=== PATIENT | female | born 1965 | race Caucasian/White ===

== ENCOUNTER 2018-07-24 19:33 | Inpatient (IN) | payer OTHER ==
[~2018-07-24] VITALS: Ht 165.1 cm; Wt 93.4 kg
[2018-07-24] MEDS ORDERED: morphine 4 MG/ML VIAL IV STA (19:36)
[2018-07-24] MEDS ORDERED: NITROGLYCERIN 50 MG/D5W (PMX) 250 ML IV STA (19:36)
[2018-07-24] MEDS ORDERED: ASPIRIN 81 MG TAB PO STA (19:36)
[2018-07-24] MEDS ORDERED: FUROSEMIDE 40 MG INJ IV STA (19:36)
[2018-07-24] MEDS ORDERED: ONDANSETRON 4 MG INJ IV STA (19:36)
--- NOTE | 2018-07-24 19:48 | ERD ---
ER Documentation Chief Complaint Chief Complaint sob HPI 52-year-old female who presents via EMS with respiratory distress. Patient is a dialysis patient getting dialysis on Tuesday and Tuesday. Occasionally supplementing with Tuesday. She did not get dialysis today and last dialysis was Tuesday. Progressive shortness of breath over the last several days. Blood pressure was greater than 200 via EMS. The patient arrives on CPAP. The patient herself describes shortness of breath but no chest pressure. No fevers chills or cough. ROS Limited given critical nature of the patient Allergies Allergies: Coded Allergies: Penicillins (Verified Allergy, Unknown, rash, 07/24/18) cefazolin (Verified Allergy, Unknown, rash, 07/24/18) morphine (Verified Allergy, Unknown, rash, 07/24/18) povidone-iodine (Verified Allergy, Unknown, rash, 07/24/18) soap (Verified Allergy, Unknown, rash, 07/24/18) vancomycin (Verified Allergy, Unknown, rash, 07/24/18) FmHx Family History: No diabetes Physical Exam Vitals Vital Signs Date Temp Pulse Resp B/P (MAP) Pulse Ox O2 O2 Flow FiO2 Time Delivery Rate 07/24/18 100 50 20:47 07/24/18 89 27 213/101 98 19:44 (138) 07/24/18 94 100 100 19:33 Physical Exam General: Obese female in respiratory distress speaking in short sentences Head: Normocephalic, atraumatic. Eyes: Pupils equally reactive, EOM intact ENT: Moist mucous membranes Neck: Supple, no lymphadenopathy Respiratory: Rales at the bases bilaterally, increased work of breathing Cardiovascular: RRR, no murmurs, rubs, or gallops Abdominal: Soft, non-tender, non-distended, no peritoneal signs : Deferred MSK: edema, no unilateral swelling, 5/5 strength, left upper extremity AV fistula with good bruit and thrill Neurologic: Alert and oriented, moving all extremities, normal speech, no focal weakness, no cerebellar signs Skin: No rash Psych: Normal mood Result Diagram: 07/24/18193907/24/181939 Results 24 hrs Laboratory Tests Test 07/24/18 19:40 07/24/18 20:30 White Blood Count 10.1 10^3/ul Red Blood Count 4.08 10^6/ul Hemoglobin 12.2 g/dl Hematocrit 39.1 % Mean Corpuscular Volume 95.8 fl Mean Corpuscular Hemoglobin 29.9 pg Mean Corpuscular Hemoglobin Concent 31.2 g/dl Red Cell Distribution Width 12.7 % Platelet Count 447 10^3/UL Mean Platelet Volume 10.3 fl Immature Granulocytes % 0.400 % Neutrophils % 44.8 % Lymphocytes % 42.3 % Monocytes % 4.3 % Eosinophils % 7.3 % Basophils % 0.9 % Nucleated Red Blood Cells % 0.0 /100WBC Immature Granulocytes # 0.040 10^3/ul Neutrophils # 4.5 10^3/ul Lymphocytes # 4.3 10^3/ul Monocytes # 0.4 10^3/ul Eosinophils # 0.7 10^3/ul Basophils # 0.1 10^3/ul Nucleated Red Blood Cells # 0.0 10^3/ul Prothrombin Time 12.5 Sec Prothrombin Time Ratio 1.0 INR International Normalized Ratio 0.92 Activated Partial Thromboplast Time 32.3 Sec Sodium Level 140 mmol/L Potassium Level 5.3 mmol/L Chloride Level 86 mmol/L Carbon Dioxide Level 26 mmol/L Anion Gap 28 Blood Urea Nitrogen 64 mg/dl Creatinine 9.22 mg/dl Est Glomerular Filtrat Rate mL/min 4 mL/min Glucose Level 407 mg/dl Calcium Level 9.5 mg/dl Total Bilirubin 0.0 mg/dl Direct Bilirubin 0.00 mg/dl Indirect Bilirubin 0.0 mg/dl Aspartate Amino Transf (AST/SGOT) 40 IU/L Alanine Aminotransferase (ALT/SGPT) 10 IU/L Alkaline Phosphatase 164 IU/L Troponin I 0.024 ng/ml B-Type Natriuretic Peptide 53156 PG/ML Total Protein 9.3 g/dl Albumin 4.9 g/dl Globulin 4.40 g/dl Albumin/Globulin Ratio 1.11 Blood Gas Specimen Source Blood arterial Arterial Blood Date Drawn 07/24/2018 8:35:10 PM Arterial Blood pH (Temp corrected) 7.369 Arterial Blood pCO2 (Temp correct) 48.1 mmhg Arterial Blood pO2 (Temp corrected) 214.7 mmHG Arterial Blood HCO3 27.1 mmol/L Arterial Blood Base Excess 1.4 mmol/L Arterial Blood Oxygen Saturation 98.7 mmHG Phan Test ACCEPTAB Arterial Blood Gas Puncture Site Right Radial Arterial Blood Carboxyhemoglobin 0.3 % Arterial Blood Methemoglobin 0.3 % Blood Gas A-a O2 Differential 450.2 mmHg Oxyhemoglobin Percent 98.1 % Blood Gas Temperature 37.0 C Blood Gas Respiration Rate 14.0 Blood Gas Actual Respiration Rate 20 Blood Gas Modality MASK - BIPAP FiO2 100.0 % Blood Gas IPAP/EPAP Ratio 15/5 Blood Gas Notified Whom MM Blood Gas Notified Time 07/24/2018 8:42:42 PM Current Medications Medications Dose Sig/Britni Start Time Status Last (Trade) Ordered Route PRN Stop Time Admin Dose Reason Admin Aspirin 162 mg ONCE STAT 07/24/18 DC 07/24/18 (Aspirin) PO 19:36 19:52 07/24/18 19:38 250 ml @ 6 ONCE STAT 07/24/18 07/24/18 Nitroglycerin mls/hr IV 19:36 19:42 / Dextrose 07/26/18 13:15 Morphine 4 mg ONCE STAT 07/24/18 DC Sulfate IV 19:36 (morphine) 07/24/18 20:04 Ondansetron 4 mg ONCE STAT 07/24/18 DC 07/24/18 HCl (Zofran IV 19:36 19:51 Inj) 07/24/18 20:04 Furosemide 40 mg ONCE STAT 07/24/18 DC (Lasix) IV 19:36 07/24/18 19:38 Insulin 10 unit ONCE ONCE 07/24/18 Human SC 22:00 Lispro 07/24/18 22:01 (Humalog) Procedures/MDM EKG, MONITORS, & DIAGNOSTIC IMAGING: EKG: I reviewed and interpreted a 12-lead EKG. Rhythm: Normal sinus rhythm ST Changes: No contiguous ST segment elevations T waves: No contiguous T wave inversions Impression: [No evidence of acute cardiac ischemia] Chest x-ray: I reviewed and interpreted a 1 view of the chest Mediastinum: No enlargement Cardiac silhouette: cardiomegaly Airspace: Bilateral pulmonary edema Bones: No evidence of fracture LAB INTERPRETATION: I reviewed the laboratory testing and it shows multiple abnormalities including borderline hyperkalemia of 5.3, elevated BUN to creatinine of 64 and 9.22, normal bicarb of 26 but hyperglycemia. This is not consistent with diabetic ketoacidosis. Negative troponin. MEDICAL DECISION MAKING: Clinical exam and presentation are consistent with volume overload and hypertensive emergency. The patient is in acute respiratory failure with increased work of breathing requiring positive pressure ventilation. Patient needs afterload and preload reduction. She still make some urine. I would like to avoid intubation if at all possible and I believe that afterload reduction positive pressure ventilation and blood pressure control be appropriate. ER COURSE: * Patient was immediately placed in the room and started on positive pressure ventilation. Nitroglycerin drip initiated. The patient was given Lasix and m orphine. * The patient has had appropriate decrease in her blood pressure with nitroglycerin drip per the patient is feeling much better on positive pressure ventilation. The patient still requires support but is certainly improving and does not require intubation * Hyperglycemia without evidence of diabetic ketoacidosis. 10 units of subcutaneous Humalog provided. CONSULTATION: [None] DISPOSITION PLAN: Accepting care team and consultations: I discussed the current laboratory data, diagnostic imaging and emergency care provided. Admitting team: Dr. Alston Admitting team indication: Insurance directed Critical Care Note: Total time: 45 minutes Indication/Organ System Threat: acute respiratory failure I spent the above amount of critical care time with the patient, not including billable procedures. This included chart review, consultations, repeat bedside evaluations, and titration of appropriate medications to prevent cardiopulmonary or respiratory collapse. Departure Diagnosis: Primary Impression: Acute respiratory failure Respiratory failure complication: unspecified whether with hypoxia or hy percapnia Qualified Codes: J96.00 - Acute respiratory failure, unspecified whether with hypoxia or hypercapnia Additional Impressions: Hypertensive emergency End stage renal disease on dialysis Hyperglycemia Condition: Critical MICHAEL MENDOZA MD Jul 24, 2018 19:48
[2018-07-24] MEDS ORDERED: CALC667C PO (21:46)
[2018-07-24] MEDS ORDERED: FOLI1CAP PO (21:46)
[2018-07-24] MEDS ORDERED: PANT40TA4 PO (21:46)
[2018-07-24] MEDS ORDERED: CLON0.2T5 PO (21:46)
[2018-07-24] MEDS ORDERED: GLIP5TAB13 PO (21:46)
[2018-07-24] MEDS ORDERED: LORA1TAB PO (21:46)
[2018-07-24] MEDS ORDERED: FOLI-49 PO (21:46)
[2018-07-24] MEDS ORDERED: ALBU8.5H8 INH (21:46)
[2018-07-24] MEDS ORDERED: DOCU-159 PO (21:46)
[2018-07-24] MEDS ORDERED: ASPI-817 PO (21:46)
[2018-07-24] MEDS ORDERED: ATEN50TA PO (21:46)
[2018-07-24] MEDS ORDERED: INSULIN LISPRO 100 UNIT/ML VIAL SC ONE (22:00)
[2018-07-24] MEDS ORDERED: ALBUTEROL 0.083% (NEB) 2.5 MG/3 ML AMP HHN PRN (22:30)
[2018-07-24] MEDS ORDERED: DOCUSATE SODIUM 100 MG CAP PO PRN ×2 (22:30→23:00)
--- NOTE | 2018-07-24 22:49 | HP ---
Date/Time of Note Date/Time of Note DATE: 07/24/18 TIME: 22:49 Assessment/Plan VTE Prophylaxis SCD applied (from Nsg): Yes Pharmacological prophylaxis: heparin Lines/Catheters IV Catheter Type (from Nrsg): Saline Lock Assessment/Plan Assessment/Plan 1. Acute hypoxic respiratory failure - Patient placed on BIPAP and saturating 97% and appears comfortable - Will wean off BIPAP as tolerated - CXR with edema vs bronchiolitis noted 2. HTN emergency - placed on Nitro drip in ED - history of elevated BP per Senior Science Consultant - continue on home meds and will wean as tolerated to keep SBP <140 3. ESRD on HD - Nephrology made aware of patients admission - on TThSa scheduled and due for HD tomorrow - still making urine per patient 4. Hyperkalemia - given insulin in ED 5. DM - A1c ordered - ISS and accuchecks - Hold home PO medications 6. Diet - Carb control 7. DVT ppx - Heparin 8. Disposition - Admit to ICU given hypertensive emergency requiring nitro drip Result Diagram: 07/24/18193907/24/181939 Results 24hrs Laboratory Tests Test 07/24/18 19:40 07/24/18 20:30 White Blood Count 10.1 Red Blood Count 4.08 L Hemoglobin 12.2 Hematocrit 39.1 Mean Corpuscular Volume 95.8 Mean Corpuscular Hemoglobin 29.9 Mean Corpuscular Hemoglobin Concent 31.2 L Red Cell Distribution Width 12.7 Platelet Count 447 H Mean Platelet Volume 10.3 Immature Granulocytes % 0.400 Neutrophils % 44.8 Lymphocytes % 42.3 Monocytes % 4.3 Eosinophils % 7.3 H Basophils % 0.9 Nucleated Red Blood Cells % 0.0 Immature Granulocytes # 0.040 H Neutrophils # 4.5 Lymphocytes # 4.3 H Monocytes # 0.4 Eosinophils # 0.7 H Basophils # 0.1 Nucleated Red Blood Cells # 0.0 Prothrombin Time 12.5 Prothrombin Time Ratio 1.0 INR International Normalized Ratio 0.92 Activated Partial Thromboplast Time 32.3 Sodium Level 140 Potassium Level 5.3 H Chloride Level 86 L Carbon Dioxide Level 26 Anion Gap 28 H Blood Urea Nitrogen 64 H Creatinine 9.22 H Est Glomerular Filtrat Rate mL/min 4 L Glucose Level 407 *H Calcium Level 9.5 Total Bilirubin 0.0 L Direct Bilirubin 0.00 Indirect Bilirubin 0.0 Aspartate Amino Transf (AST/SGOT) 40 Alanine Aminotransferase (ALT/SGPT) 10 L Alkaline Phosphatase 164 H Troponin I 0.024 B-Type Natriuretic Peptide 06816 H Total Protein 9.3 H Albumin 4.9 Globulin 4.40 H Albumin/Globulin Ratio 1.11 Blood Gas Specimen Source Blood arterial Arterial Blood Date Drawn 07/24/2018 8:35:10 PM Arterial Blood pH (Temp corrected) 7.369 Arterial Blood pCO2 (Temp correct) 48.1 H Arterial Blood pO2 (Temp corrected) 214.7 H Arterial Blood HCO3 27.1 H Arterial Blood Base Excess 1.4 Arterial Blood Oxygen Saturation 98.7 H Phan Test ACCEPTAB Arterial Blood Gas Puncture Site Right Radial Arterial Blood Carboxyhemoglobin 0.3 Arterial Blood Methemoglobin 0.3 Blood Gas A-a O2 Differential 450.2 H Oxyhemoglobin Percent 98.1 Blood Gas Temperature 37.0 Blood Gas Respiration Rate 14.0 Blood Gas Actual Respiration Rate 20 Blood Gas Modality MASK - BIPAP FiO2 100.0 Blood Gas IPAP/EPAP Ratio 15/5 Blood Gas Notified Whom MM Blood Gas Notified Time 07/24/2018 8:42:42 PM HPI/ROS Admit Date/Time Admit Date/Time 07/24/18 2200 Hx of Present Illness 52 yo F with PMH ESRD on HD TTSa, DM, HTN presents to ED with worsening shortness of breath that started at 5pm today. Patient states she was doing well earlier today and laid down to rest around 5pm when she started experiencing worsening shortness of breath. She admits to cough and clear productive sputum. In the EMS, she was found with elevated BP with SBP in the 200s and placed on CPAP given hypoxia. Patient denies any chest pain, palpitation. wheezing, abdominal pain, urinary issues, constipation, or diarrhea. Patient admits last HD session was Tuesday and follows with Dr Martin and Dr. Calvo as outpatient. Patient states shes had this in the past and told she has asthma. ROS All 12 systems reviewed and pertinent positives as per HPI. All others negative. Constitutional: No chills, No fatigue, No nausea Eyes: No discharge ENT: No congestion Respiratory: cough, shortness of breath, sputum; No wheezing Cardiovascular: No chest pain, No lightheadedness, No palpitations Gastrointestinal: No pain, No constipation, No diarrhea, No nausea Genitourinary: no complaints Musculoskeletal: No back pain Skin: No laceration, No rash Neurologic: No confusion, No dizziness, No focal-weakness, No headache Endocrine: no complaints Lymphatic: no complaints Psychological: nl mood/affect PMH/Family/Social Past Medical History Medical History: diabetes, hypertension, renal disease Medications Current Medications Nitroglycerin/ Dextrose 250 ml @ 6 mls/hr ONCE STAT IV Last administered on 07/24/18at 19:42; Admin Dose 30 MLS/HR; Start 07/24/18 at 19:36; Stop 07/26/18 at 13:15 Aspirin (Halfprin) 81 mg DAILY PO ; Start 07/25/18 at 09:00 Atenolol (Tenormin) 50 mg BID PO ; Start 07/25/18 at 09:00 Calcium Acetate (Phoslo) 667 mg WITH MEALS PO ; Start 07/25/18 at 08:00 Clonidine (Catapres) 0.2 mg BID PO ; Start 07/25/18 at 09:00 Docusate Sodium (Colace) 100 mg BID PRN PO CONSTIPATION; Start 07/24/18 at 22:30 Folic Acid (Folic Acid) 1 mg DAILY PO ; Start 07/25/18 at 09:00 Lorazepam (Ativan) 1 mg BID PRN PO ANXIETY; Start 07/24/18 at 22:30 Pantoprazole (Protonix Tab) 40 mg DAILY PO ; Start 07/25/18 at 09:00 Multivit/Ca Carb/ B Cmplx/FA/Prenat (Vivi-Marisel) 1 tab DAILY PO ; Start 07/25/18 at 09:00 Albuterol (Proventil 0.083% (Neb)) 2.5 mg Q2H RESP THERAPY PRN HHN SHORTNESS OF BREATH; Start 07/24/18 at 22:30 Coded Allergies: Penicillins (Verified Allergy, Unknown, rash, 07/24/18) cefazolin (Verified Allergy, Unknown, rash, 07/24/18) morphine (Verified Allergy, Unknown, rash, 07/24/18) povidone-iodine (Verified Allergy, Unknown, rash, 07/24/18) soap (Verified Allergy, Unknown, rash, 07/24/18) vancomycin (Verified Allergy, Unknown, rash, 07/24/18) Past Surgical History Past Surgical Hx: cholecystectomy, other (multiple procedures for HD access) Family History Significant Family History: other (noncontributory) Social History Alcohol Use: none Smoking Status: Former smoker Drug Use: none Exam/Review of Systems Vital Signs Vitals Vital Signs Date Temp Pulse Resp B/P (MAP) Pulse Ox O2 O2 Flow FiO2 Time Delivery Rate 07/24/18 100 50 20:47 07/24/18 89 27 213/101 19:44 (138) Exam Exam General: Patient is a pleasant female, Currently lying in bed, on BIPAP HEENT: Atraumatic, normocephalic. The pupils are equal, round and reactive. Extraocular motor are intact Neck: Supple with full range of motion. No rigidity or meningismus Chest: Nontender Lungs: Diminished breath sounds, crackles at bases, No wheezing Heart: Normal S1-S2, Regular rhythm, bradycardia, No murmurs Abdomen: Soft, obese, nontender, nondistended , bowel sounds are present. No guarding no rebound tenderness , No masses or organomegaly. No costovertebral temporal angle mass Extremities: Normal to inspection, no edema no cyanosis Neurologic: Normal mental status, speech normal, cranial nerves II through XII are intact, motor and sensory are intact, Additional Comments Home medications reviewed ANDREA PARMAR MD Jul 24, 2018 22:49
[2018-07-24] MEDS ORDERED: MAGNESIUM HYDROXIDE 30ML CUP PO PRN (23:00)
--- NOTE | 2018-07-24 23:46 | CONS ---
Assessment/Plan Assessment/Plan Assessment/Plan 52 yo Female with 1) Acute Hypoxic Respiratory Failure 2) Volume Overload 3) Uncontrolled HTN 4) Diastolic Heart Failure 5) ESRD on HD TTS 6) Anemia, Chronic Disease 7) MBD of CKD 8) Hyperkalemia HD ordered stat Called [facility] HD and gave order as well Planned for ICU transfer once bed available UF as tolerated Will likely need HD again within 24 hours. Repeat Labs in am Thank you Dr Alston for the opportunity to participate in the care of Ms Narayanan. Consultation Date/Type/Reason Admit Date/Time 07/24/18 2200 Type of Consult Nephrology Reason for Consultation ESRD, Urgent HD Requesting Provider: ANDREA ALSTON MD Date/Time of Note DATE: 07/24/18 TIME: 23:46 Hx of Present Illness 52 yo Female with ESRD on HD TTS at [facility], presenting with wo rsening SOB and Cough, Found to have hypoxemia and uncontrolled HTN, Requiring BIPAP and IV anti HTN Rx. Planned for ICU admission. Nephrology consulted for urgent HD. Pt with LUE AVG, which is functioning. NO chest pain, No fever or chills, NO abdominal pain. Pt has productive cough with no discoloration. Constitutional: requiring O2 Past Medical History Medical History Nephrology: congestive heart failure, diabetes, hypertension, renal disease Home Meds Reported Medications Folic Acid* (Folic Acid*) 1 Mg Tablet, 1 MG PO DAILY, TAB 07/24/18 Docusate Sodium* (Docusate Sodium*) 100 Mg Capsule, 100 MG PO BID PRN for CONSTIPATION, #60 CAP 07/24/18 Aspirin* (Aspirin* EC) 81 Mg Tablet., 81 MG PO DAILY, TAB 07/24/18 Atenolol* (Atenolol*) 50 Mg Tablet, 50 MG PO BID, #60 TAB 07/24/18 Folic Acid/Vitamin B Comp W-C (Nephrocaps Capsule) 1 Mg Capsule, 1 MG PO DAILY, CAP 07/24/18 Lorazepam* (Lorazepam*) 1 Mg Tablet, 1 MG PO BID PRN for ANXIETY, #30 TAB 07/24/18 Glipizide* (Glipizide*) 5 Mg Tablet, 5 MG PO BID, TAB 07/24/18 Clonidine Hcl* (Clonidine Hcl*) 0.2 Mg Tablet, 0.2 MG PO BID, TAB 07/24/18 Albuterol Sulfate* (Proair HFA*) 8.5 Gm Hfa.aer.ad, 2 PUFF INH Q4, #1 INHALER 07/24/18 Pantoprazole* (Pantoprazole*) 40 Mg Tablet.dr, 40 MG PO DAILY, TAB 07/24/18 Calcium Acetate* (Calcium Acetate*) 667 Mg Capsule, 667 MG PO WITH MEALS, #30 CAP 07/24/18 Medications Current Medications Nitroglycerin/ Dextrose 250 ml @ 6 mls/hr ONCE STAT IV Last administered on 07/24/18at 19:42; Admin Dose 30 MLS/HR; Start 07/24/18 at 19:36; Stop 07/26/18 at 13:15 Aspirin (Halfprin) 81 mg DAILY PO ; Start 07/25/18 at 09:00 Atenolol (Tenormin) 50 mg BID PO ; Start 07/25/18 at 09:00 Calcium Acetate (Phoslo) 667 mg WITH MEALS PO ; Start 07/25/18 at 08:00 Clonidine (Catapres) 0.2 mg BID PO ; Start 07/25/18 at 09:00 Docusate Sodium (Colace) 100 mg BID PRN PO CONSTIPATION; Start 07/24/18 at 22:30 Folic Acid (Folic Acid) 1 mg DAILY PO ; Start 07/25/18 at 09:00 Lorazepam (Ativan) 1 mg BID PRN PO ANXIETY; Start 07/24/18 at 22:30 Pantoprazole (Protonix Tab) 40 mg DAILY PO ; Start 07/25/18 at 09:00 Multivit/Ca Carb/ B Cmplx/FA/Prenat (Vivi-Marisel) 1 tab DAILY PO ; Start 07/25/18 at 09:00 Albuterol (Proventil 0.083% (Neb)) 2.5 mg Q2H RESP THERAPY PRN HHN SHORTNESS OF BREATH; Start 07/24/18 at 22:30 Ondansetron HCl (Zofran Inj) 4 mg Q6H PRN IV NAUSEA AND/OR VOMITING; Start 07/24/18 at 23:00 Acetaminophen (Tylenol Tab) 650 mg Q6H PRN PO PAIN LEVEL 1-3 OR FEVER; Start 07/24/18 at 23:00 Docusate Sodium (Colace) 100 mg Q12H PRN PO CONSTIPATION; Start 07/24/18 at 23:00 Magnesium Hydroxide (Milk Of Mag) 30 ml DAILY PRN PO CONSTIPATION; Start 07/24/18 at 23:00 Famotidine (Pepcid Iv) 20 mg Q12 IV ; Start 07/25/18 at 09:00 Heparin Sodium (Porcine) (Heparin (5000 Units/1ml)) 5,000 unit Q12 SC ; Start 07/25/18 at 09:00 Miscellaneous Information (* Miscellaneous Pharmacy Order) Discontinue current oral sulfonylur... ONCE ONCE XX ; Start 07/25/18 at 00:00; Stop 07/25/18 at 00:01; Status UNV Miscellaneous Information (* Miscellaneous Pharmacy Order) HYPOGLYCEMIA PROTOCOL w... ONCE ONCE XX ; Start 07/25/18 at 00:00; Stop 07/25/18 at 00:01; Status UNV Insulin Aspart (Novolog Insulin Pen) NOVOLOG *MILD* ALGORITHM WITH MEALS BEDTIME SC ; Start 07/25/18 at 08:00; Status UNV Miscellaneous Information (* Miscellaneous Pharmacy Order) Discontinue all previ... ONCE ONCE XX ; Start 07/25/18 at 00:00; Stop 07/25/18 at 00:01; Status UNV Levofloxacin/ Dextrose 100 ml @ 100 mls/hr Q48H IVPB ; Start 07/25/18 at 00:00; Status UNV Allergies: Coded Allergies: Penicillins (Verified Allergy, Unknown, rash, 07/24/18) cefazolin (Verified Allergy, Unknown, rash, 07/24/18) morphine (Verified Allergy, Unknown, rash, 07/24/18) povidone-iodine (Verified Allergy, Unknown, rash, 07/24/18) soap (Verified Allergy, Unknown, rash, 07/24/18) vancomycin (Verified Allergy, Unknown, rash, 07/24/18) Past Surgical History Past Surgical Hx: cholecystectomy, other (multiple procedures for HD access) Family History Significant Family History: no pertinent family hx Social History Alcohol Use: none Smoking Status: Former smoker Drug Use: none Exam/Review of Systems Vital Signs Vitals Vital Signs Date Temp Pulse Resp B/P (MAP) Pulse Ox O2 O2 Flow FiO2 Time Delivery Rate 07/24/18 64 19 156/78 100 BIPAP 23:30 (104) 07/24/18 35 23:11 Exam Constitutional: alert, oriented, distress Head: normocephalic, atraumatic ENMT: mucosa pink and moist Neck: jvd Respiratory: crackles/rales, other (BIPAP); No diminished breath sounds Cardiovascular: regular rate and rhythm, edema (Trace) Gastrointestinal: soft; No distended, No rebound or guarding Extremities: edema, pitting pedal edema 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, nl mental status, nl speech; No confused, No lethargic Skin: No rash or lesions, No diaphoresis Labs Result Diagram: 07/24/18193907/24/181939 Results 24hrs Laboratory Tests Test 07/24/18 19:40 07/24/18 20:30 07/24/18 23:29 White Blood Count 10.1 Red Blood Count 4.08 L Hemoglobin 12.2 Hematocrit 39.1 Mean Corpuscular Volume 95.8 Mean Corpuscular Hemoglobin 29.9 Mean Corpuscular 31.2 L Hemoglobin Concent Red Cell Distribution Width 12.7 Platelet Count 447 H Mean Platelet Volume 10.3 Immature Granulocytes % 0.400 Neutrophils % 44.8 Lymphocytes % 42.3 Monocytes % 4.3 Eosinophils % 7.3 H Basophils % 0.9 Nucleated Red Blood Cells % 0.0 Immature Granulocytes # 0.040 H Neutrophils # 4.5 Lymphocytes # 4.3 H Monocytes # 0.4 Eosinophils # 0.7 H Basophils # 0.1 Nucleated Red Blood Cells # 0.0 Prothrombin Time 12.5 Prothrombin Time Ratio 1.0 INR International 0.92 Normalized Ratio Activated 32.3 Partial Thromboplast Time Sodium Level 140 Potassium Level 5.3 H Chloride Level 86 L Carbon Dioxide Level 26 Anion Gap 28 H Blood Urea Nitrogen 64 H Creatinine 9.22 H Est Glomerular Filtrat 4 L Rate mL/min Glucose Level 407 *H Calcium Level 9.5 Total Bilirubin 0.0 L Direct Bilirubin 0.00 Indirect Bilirubin 0.0 Aspartate Amino 40 Transf (AST/SGOT) Alanine 10 L Aminotransferase (ALT/SGPT) Alkaline Phosphatase 164 H Troponin I 0.024 B-Type Natriuretic Peptide 62105 H Total Protein 9.3 H Albumin 4.9 Globulin 4.40 H Albumin/Globulin Ratio 1.11 Blood Gas Specimen Source Blood arterial Arterial Blood Date Drawn 07/24/2018 8:35:10 PM Arterial Blood pH 7.369 (Temp corrected) Arterial Blood pCO2 48.1 H (Temp correct) Arterial Blood pO2 214.7 H (Temp corrected) Arterial Blood HCO3 27.1 H Arterial Blood Base Excess 1.4 Arterial Blood 98.7 H Oxygen Saturation Phan Test ACCEPTAB Arterial Blood Gas Right Radial Puncture Site Arterial 0.3 Blood Carboxyhemoglobin Arterial Blood Methemoglobin 0.3 Blood Gas A-a O2 450.2 H Differential Oxyhemoglobin Percent 98.1 Blood Gas Temperature 37.0 Blood Gas Respiration Rate 14.0 Blood Gas Actual 20 Respiration Rate Blood Gas Modality MASK - BIPAP FiO2 100.0 Blood Gas IPAP/EPAP Ratio 15/5 Blood Gas Notified Whom MM Blood Gas Notified Time 07/24/2018 8:42:42 PM Bedside Glucose 269 H Imaging Imaging PROCEDURE: XR Chest. CLINICAL INDICATION: Chest Pain. TECHNIQUE: Portable AP view of the chest was obtained. COMPARISON: None. FINDINGS: Diffuse interstitial opacities. No effusion or pneumothorax. Mild cardiomegaly. Calcified atherosclerosis of the thoracic aorta. No acute fractures. IMPRESSION: Diffuse interstitial opacities which may represent mild pulmonary edema or bronchiolitis. RPTAT: HRGF Physician Kaitlin Date Time Electronically viewed and signed by Maile Workman Physician on 07/24/2018 20:42 Medications Medications Current Medications Nitroglycerin/ Dextrose 250 ml @ 6 mls/hr ONCE STAT IV Last administered on 07/24/18at 19:42; Admin Dose 30 MLS/HR; Start 07/24/18 at 19:36; Stop 07/26/18 at 13:15 Aspirin (Halfprin) 81 mg DAILY PO ; Start 07/25/18 at 09:00 Atenolol (Tenormin) 50 mg BID PO ; Start 07/25/18 at 09:00 Calcium Acetate (Phoslo) 667 mg WITH MEALS PO ; Start 07/25/18 at 08:00 Clonidine (Catapres) 0.2 mg BID PO ; Start 07/25/18 at 09:00 Docusate Sodium (Colace) 100 mg BID PRN PO CONSTIPATION; Start 07/24/18 at 22:30 Folic Acid (Folic Acid) 1 mg DAILY PO ; Start 07/25/18 at 09:00 Lorazepam (Ativan) 1 mg BID PRN PO ANXIETY; Start 07/24/18 at 22:30 Pantoprazole (Protonix Tab) 40 mg DAILY PO ; Start 07/25/18 at 09:00 Multivit/Ca Carb/ B Cmplx/FA/Prenat (Vivi-Marisel) 1 tab DAILY PO ; Start 07/25/18 at 09:00 Albuterol (Proventil 0.083% (Neb)) 2.5 mg Q2H RESP THERAPY PRN HHN SHORTNESS OF BREATH; Start 07/24/18 at 22:30 Ondansetron HCl (Zofran Inj) 4 mg Q6H PRN IV NAUSEA AND/OR VOMITING; Start 07/24/18 at 23:00 Acetaminophen (Tylenol Tab) 650 mg Q6H PRN PO PAIN LEVEL 1-3 OR FEVER; Start 07/24/18 at 23:00 Docusate Sodium (Colace) 100 mg Q12H PRN PO CONSTIPATION; Start 07/24/18 at 23:00 Magnesium Hydroxide (Milk Of Mag) 30 ml DAILY PRN PO CONSTIPATION; Start 07/24/18 at 23:00 Famotidine (Pepcid Iv) 20 mg Q12 IV ; Start 07/25/18 at 09:00 Heparin Sodium (Porcine) (Heparin (5000 Units/1ml)) 5,000 unit Q12 SC ; Start 07/25/18 at 09:00 Miscellaneous Information (* Miscellaneous Pharmacy Order) Discontinue current oral sulfonylur... ONCE ONCE XX ; Start 07/25/18 at 00:00; Stop 07/25/18 at 00:01; Status UNV Miscellaneous Information (* Miscellaneous Pharmacy Order) HYPOGLYCEMIA PROTOCOL w... ONCE ONCE XX ; Start 07/25/18 at 00:00; Stop 07/25/18 at 00:01; Status UNV Insulin Aspart (Novolog Insulin Pen) NOVOLOG *MILD* ALGORITHM WITH MEALS BEDTIME SC ; Start 07/25/18 at 08:00; Status UNV Miscellaneous Information (* Miscellaneous Pharmacy Order) Discontinue all previ... ONCE ONCE XX ; Start 07/25/18 at 00:00; Stop 07/25/18 at 00:01; Status UNV Levofloxacin/ Dextrose 100 ml @ 100 mls/hr Q48H IVPB ; Start 07/25/18 at 00:00; Status UNV MAINOR GERARDO MD Jul 24, 2018 23:46
[2018-07-25] VITALS (73 sets, daily range): BP systolic 139–254; BP diastolic 64–136; PULSE 63–86; RESP 12–30; Ht 165.1 cm; Wt 93.4 kg
[2018-07-25] MEDS: ACETAMINOPHEN 325 MG TAB PO PRN ×3 (03:33→21:42)
[2018-07-25] MEDS ORDERED: NITROGLYCERIN 50 MG/D5W (PMX) 250 ML IV SCH (06:00)
[2018-07-25] MEDS: LEVOFLOXACIN 500MG/D5W (PMX) 100 ML IVPB SCH (07:09)
[2018-07-25] MEDS: PANTOPRAZOLE (EC) 40 MG TAB PO SCH (08:08)
[2018-07-25] MEDS: MULTIVIT/CA CARB/B CMPLX/FA TAB PO SCH (08:08)
[2018-07-25] MEDS: FOLIC ACID 1 MG TAB PO SCH (08:09)
[2018-07-25] MEDS: ASPIRIN (EC) 81 MG TAB PO SCH (08:09)
[2018-07-25] MEDS: ATENOLOL 50 MG TAB PO SCH ×2 (08:09→20:19)
[2018-07-25] MEDS: HEPARIN 5,000 UNIT/1 ML VIAL SC SCH ×2 (08:10→20:17)
[2018-07-25] MEDS: CALCIUM ACETATE 667 MG CAP PO SCH ×3 (08:12→17:16)
[2018-07-25] MEDS: INSULIN ASPART [NOVOLOG] 3 ML PEN SC SCH ×4 (08:14→20:18)
[2018-07-25] MEDS: NITROGLYCERIN 50 MG/D5W (PMX) 250 ML IV SCH ×2 (08:42→10:21)
[2018-07-25] MEDS ORDERED: FAMOTIDINE 20 MG INJ IV SCH (09:00)
[2018-07-25] MEDS: ONDANSETRON 4 MG INJ IV PRN ×2 (09:52→17:21)
[2018-07-25] MEDS: LORAZEPAM 1 MG TAB PO PRN ×2 (09:52→17:16)
[2018-07-25] MEDS ORDERED: hydrALAzine 20 MG INJ ONE (11:08)
[2018-07-25] MEDS: AMLODIPINE 5 MG TAB PO SCH ×2 (11:15→20:19)
--- NOTE | 2018-07-25 11:15 | CONS ---
Assessment/Plan Assessment/Plan Assessment/Plan 52 yo Female with 1) Acute Hypoxic Respiratory Failure 2) Volume Overload 3) Uncontrolled HTN 4) Diastolic Heart Failure 5) ESRD on HD TTS 6) Anemia, Chronic Disease 7) MBD of CKD 8) Hyperkalemia DC NTG drip Hydralazine order IV x1 the PRN Will add Norvasc 5mg po bid with parameters HD again tomorrow w Repeat Labs in am CXR in am Thank you Dr Alston for the opportunity to participate in the care of Ms Narayanan. Consultation Date/Type/Reason Admit Date/Time 07/24/182199 Type of Consult Nephrology Date/Time of Note DATE: 07/25/18 TIME: 11:05 Hx of Present Illness S/p HD early this am, Off Bipap On NC BP still elevated KHALIL with NTG Drip Constitutional: requiring O2 Exam/Review of Systems Vital Signs Vitals Vital Signs Date Temp Pulse Resp B/P (MAP) Pulse Ox O2 O2 Flow FiO2 Time Delivery Rate 07/25/18 70 20 175/75 99 Nasal 10:00 (108) Cannula 07/25/18 3.0 08:00 07/25/18 98.4 08:00 07/24/18 35 23:11 Intake and Output 07/24/18 07/24/18 07/25/18 1515:00 23:00 07:00 IntakeIntake Total 250 ml OutputOutput Total 3006 ml BalanceBalance -2756 ml Exam Constitutional: No distress Neck: No jvd Respiratory: crackles/rales; No diminished breath sounds Cardiovascular: regular rate and rhythm, edema (improved) Gastrointestinal: soft; No rebound or guarding 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, nl mental status; No confused, No focal weakness, No lethargic Skin: No diaphoresis Labs Result Diagram: 07/25/18 0602 07/25/18 0602 Results 24hrs Laboratory Tests Test 07/24/18 19:40 07/24/18 20:30 07/24/18 23:29 07/25/18 00:44 White Blood Count 10.1 Red Blood Count 4.08 L Hemoglobin 12.2 Hematocrit 39.1 Mean Corpuscular 95.8 Volume Mean Corpuscular 29.9 Hemoglobin Mean Corpuscular 31.2 L Hemoglobin Concen t Red Cell 12.7 Distribution Width Platelet Count 447 H Mean Platelet 10.3 Volume Immature 0.400 Granulocytes % Neutrophils % 44.8 Lymphocytes % 42.3 Monocytes % 4.3 Eosinophils % 7.3 H Basophils % 0.9 Nucleated Red 0.0 Blood Cells % Immature 0.040 H Granulocytes # Neutrophils # 4.5 Lymphocytes # 4.3 H Monocytes # 0.4 Eosinophils # 0.7 H Basophils # 0.1 Nucleated Red 0.0 Blood Cells # Prothrombin Time 12.5 Prothrombin Time 1.0 Ratio INR International 0.92 Normalized Ratio Activated 32.3 Partial Thrombopl ast Time Sodium Level 140 Potassium Level 5.3 H Chloride Level 86 L Carbon Dioxide 26 Level Anion Gap 28 H Blood Urea 64 H Nitrogen Creatinine 9.22 H Est Glomerular 4 L Filtrat Rate mL/min Glucose Level 407 *H Hemoglobin A1c 9.8 H Calcium Level 9.5 Total Bilirubin 0.0 L Direct Bilirubin 0.00 Indirect 0.0 Bilirubin Aspartate Amino 40 Transf (AST/SGOT) Alanine 10 L Aminotransferase (ALT/SGPT) Alkaline 164 H Phosphatase Troponin I 0.024 B-Type 94648 H Natriuretic Peptide Total Protein 9.3 H Albumin 4.9 Globulin 4.40 H Albumin/Globulin 1.11 Ratio Blood Gas Blood arterial Specimen Source Arterial Blood 07/24/2018 8:35:1 Date Drawn 0 PM Arterial Blood pH 7.369 (Temp corrected) Arterial Blood 48.1 H pCO2 (Temp correct) Arterial Blood 214.7 H pO2 (Temp corrected) Arterial Blood 27.1 H HCO3 Arterial Blood 1.4 Base Excess Arterial Blood 98.7 H Oxygen Saturation Phan Test ACCEPTAB Arterial Blood Right Radial Gas Puncture Site Arterial 0.3 Blood Carboxyhemo globin Arterial Blood 0.3 Methemoglobin Blood Gas A-a O2 450.2 H Differential Oxyhemoglobin 98.1 Percent Blood Gas 37.0 Temperature Blood Gas 14.0 Respiration Rate Blood Gas Actual 20 Respiration Rate Blood Gas MASK - BIPAP Modality FiO2 100.0 Blood Gas 15/5 IPAP/EPAP Ratio Blood Gas MM Notified Whom Blood Gas 07/24/2018 8:42:4 Notified Time 2 PM Bedside Glucose 269 H 215 Test 07/25/18 06:02 07/25/18 08:13 07/25/18 10:15 White Blood Count 7.8 # Red Blood Count 3.12 #L Hemoglobin 9.5 #L Hematocrit 28.9 #L Mean Corpuscular 92.6 Volume Mean Corpuscular 30.4 Hemoglobin Mean Corpuscular 32.9 Hemoglobin Concen t Red Cell 12.7 Distribution Width Platelet Count 332 # Mean Platelet 10.5 H Volume Immature 0.300 Granulocytes % Neutrophils % 62.7 Lymphocytes % 23.9 Monocytes % 7.5 Eosinophils % 4.8 Basophils % 0.8 Nucleated Red 0.0 Blood Cells % Immature 0.020 Granulocytes # Neutrophils # 4.9 Lymphocytes # 1.9 Monocytes # 0.6 Eosinophils # 0.4 Basophils # 0.1 Nucleated Red 0.0 Blood Cells # Sodium Level 139 Potassium Level 4.4 Chloride Level 97 # Carbon Dioxide 34 H Level Anion Gap 8 # Blood Urea 25 #H Nitrogen Creatinine 3.24 #H Est Glomerular 15 L Filtrat Rate mL/min Glucose Level 118 # Calcium Level 9.3 Magnesium Level 2.1 Total Bilirubin 0.0 L Direct Bilirubin 0.00 Indirect 0.0 Bilirubin Aspartate Amino 35 Transf (AST/SGOT) Alanine 23 Aminotransferase (ALT/SGPT) Alkaline 121 Phosphatase Creatine Kinase 44 46 Creatine Kinase 2.2 1.4 Index Creatinine Kinase 0.96 0.64 MB (Mass) Troponin I 0.057 0.052 Total Protein 7.3 # Albumin 4.0 Globulin 3.30 H Albumin/Globulin 1.21 Ratio Bedside Glucose 141 Medications Medications Current Medications Aspirin (Halfprin) 81 mg DAILY PO Last administered on 07/25/18 08:09; Admin Dose 81 MG; Start 07/25/18 at 09:00 Atenolol (Tenormin) 50 mg BID PO Last administered on 07/25/18 08:09; Admin Dose 50 MG; Start 07/25/18 at 09:00 Calcium Acetate (Phoslo) 667 mg WITH MEALS PO Last administered on 07/25/18 08:12; Admin Dose 667 MG; Start 07/25/18 at 07:35 Clonidine (Catapres) 0.2 mg BID PO Last administered on 07/25/18 08:09; Admin Dose 0.2 MG; Start 07/25/18 at 09:00 Folic Acid (Folic Acid) 1 mg DAILY PO Last administered on 07/25/18 08:09; Admin Dose 1 MG; Start 07/25/18 at 09:00 Lorazepam (Ativan) 1 mg BID PRN PO ANXIETY Last administered on 07/25/18 09:52; Admin Dose 1 MG; Start 07/24/18 at 22:30 Pantoprazole (Protonix Tab) 40 mg DAILY PO Last administered on 07/25/18 08:08; Admin Dose 40 MG; Start 07/25/18 at 09:00 Multivit/Ca Carb/ B Cmplx/FA/Prenat (Vivi-Marisel) 1 tab DAILY PO Last administered on 07/25/18 08:08; Admin Dose 1 TAB; Start 07/25/18 at 09:00 Albuterol (Proventil 0.083% (Neb)) 2.5 mg Q2H RESP THERAPY PRN HHN SHORTNESS OF BREATH; Start 07/24/18 at 22:30 Ondansetron HCl (Zofran Inj) 4 mg Q6H PRN IV NAUSEA AND/OR VOMITING Last administered on 07/25/18 09:52; Admin Dose 4 MG; Start 07/24/18 at 23:00 Acetaminophen (Tylenol Tab) 650 mg Q6H PRN PO PAIN LEVEL 1-3 OR FEVER Last administered on 07/25/18 08:58; Admin Dose 650 MG; Start 07/24/18 at 23:00 Docusate Sodium (Colace) 100 mg Q12H PRN PO CONSTIPATION; Start 07/24/18 at 23:00 Magnesium Hydroxide (Milk Of Mag) 30 ml DAILY PRN PO CONSTIPATION; Start 07/24/18 at 23:00 Famotidine (Pepcid Iv) 20 mg Q12 IV Last administered on 07/25/18 08:19; Admin Dose 20 MG; Start 07/25/18 at 09:00 Heparin Sodium (Porcine) (Heparin (5000 Units/1ml)) 5,000 unit Q12 SC Last administered on 07/25/18 08:10; Admin Dose 5,000 UNIT; Start 07/25/18 at 09:00 Insulin Aspart (Novolog Insulin Pen) NOVOLOG *MILD* ALGORITHM WITH MEALS BEDTIME SC Last administered on 07/25/18 08:14; Admin Dose 1 UNIT; Start 07/25/18 at 07:35 Levofloxacin/ Dextrose 100 ml @ 100 mls/hr Q48H IVPB Last administered on 07/25/18 07:09; Admin Dose 100 MLS/HR; Start 07/25/18 at 00:00 Nitroglycerin/ Dextrose 250 ml @ 0 mls/hr TITRATE IV Last administered on 07/25/18at 10:21; Admin Dose 75 MLS/HR; Start 07/25/18 at 06:00 MAINOR GERARDO MD Jul 25, 2018 11:15
[2018-07-25] MEDS ORDERED: hydrALAzine 20 MG INJ IV PRN (11:30)
[2018-07-25] MEDS ORDERED: hydrALAzine 20 MG INJ IV ONE (11:30)
--- NOTE | 2018-07-25 13:44 | PN ---
Date/Time of Note Date/Time of Note DATE: 07/25/18 TIME: 13:40 Assessment/Plan VTE Prophylaxis Risk score (from Ns)>0 risk: 2 SCD applied (from Ns): No SCD contraindicated: other (no) Pharmacological prophylaxis: heparin Lines/Catheters IV Catheter Type (from [facility]): Peripheral IV Urinary Cath still in place: No Assessment/Plan Assessment/Plan # Acute hypoxic respiratory failure - CXR with pulmonary edema, may be from ineffective dialysis. - Admitted on BiPAP, now on nasal cannula. # HTN emergency - Continue home meds - Currently on nitro gtt. # ESRD on HD - on TThSa scheduled - Got inpatient HD 07/25. - Patient still produces urine - Dr. Varghese following. # Hyperkalemia - resolved # DM - ISS and accuchecks - Hold home PO medications # Diet - Carb control # DVT ppx - Heparin Result Diagram: 07/25/18 0602 07/25/18 0602 Subjective 24 Hr Interval Summary Free Text/Dictation Got dialysis last night. Breathing significantly improved; now off BiPAP on nasal cannula. Exam/Review of Systems Exam Vitals Vital Signs Date Temp Pulse Resp B/P (MAP) Pulse Ox O2 O2 Flow FiO2 Time Delivery Rate 07/25/18 67 16 162/69 100 12:15 (100) 07/25/18 98.9 Nasal 3.0 12:00 Cannula 07/24/18 35 23:11 Intake and Output 07/24/18 07/24/18 07/25/18 1515:00 23:00 07:00 IntakeIntake Total 250 ml OutputOutput Total 3006 ml BalanceBalance -2756 ml Exam General: Patient is an obese woman, Currently lying in bed, on nasal cannula HEENT: Atraumatic, normocephalic. The pupils are equal, round and reactive. Extraocular motor are intact Neck: Supple with full range of motion. No rigidity or meningismus Chest: Nontender Lungs: Clear to auscultation, no crackles, No wheezing Heart: Normal S1-S2, Regular rhythm, bradycardia, No murmurs Abdomen: Soft, obese, nontender, nondistended , bowel sounds are present. No guarding no rebound tenderness , No masses or organomegaly. No costovertebral temporal angle mass Extremities: Normal to inspection, no edema no cyanosis Medications Medication Current Medications Aspirin (Halfprin) 81 mg DAILY PO Last administered on 07/25/18 08:09; Admin Dose 81 MG; Start 07/25/18 at 09:00 Atenolol (Tenormin) 50 mg BID PO Last administered on 07/25/18 08:09; Admin Dose 50 MG; Start 07/25/18 at 09:00 Calcium Acetate (Phoslo) 667 mg WITH MEALS PO Last administered on 07/25/18 12:26; Admin Dose 667 MG; Start 07/25/18 at 07:35 Clonidine (Catapres) 0.2 mg BID PO Last administered on 07/25/18 08:09; Admin Dose 0.2 MG; Start 07/25/18 at 09:00 Folic Acid (Folic Acid) 1 mg DAILY PO Last administered on 07/25/18 08:09; Admin Dose 1 MG; Start 07/25/18 at 09:00 Lorazepam (Ativan) 1 mg BID PRN PO ANXIETY Last administered on 07/25/18 09:52; Admin Dose 1 MG; Start 07/24/18 at 22:30 Pantoprazole (Protonix Tab) 40 mg DAILY PO Last administered on 07/25/18 08:08; Admin Dose 40 MG; Start 07/25/18 at 09:00 Multivit/Ca Carb/ B Cmplx/FA/Prenat (Vivi-Marisel) 1 tab DAILY PO Last administered on 07/25/18 08:08; Admin Dose 1 TAB; Start 07/25/18 at 09:00 Albuterol (Proventil 0.083% (Neb)) 2.5 mg Q2H RESP THERAPY PRN HHN SHORTNESS OF BREATH; Start 07/24/18 at 22:30 Ondansetron HCl (Zofran Inj) 4 mg Q6H PRN IV NAUSEA AND/OR VOMITING Last administered on 07/25/18 09:52; Admin Dose 4 MG; Start 07/24/18 at 23:00 Acetaminophen (Tylenol Tab) 650 mg Q6H PRN PO PAIN LEVEL 1-3 OR FEVER Last administered on 07/25/18 08:58; Admin Dose 650 MG; Start 07/24/18 at 23:00 Docusate Sodium (Colace) 100 mg Q12H PRN PO CONSTIPATION; Start 07/24/18 at 23:00 Magnesium Hydroxide (Milk Of Mag) 30 ml DAILY PRN PO CONSTIPATION; Start 07/24/18 at 23:00 Heparin Sodium (Porcine) (Heparin (5000 Units/1ml)) 5,000 unit Q12 SC Last administered on 07/25/18 08:10; Admin Dose 5,000 UNIT; Start 07/25/18 at 09:00 Insulin Aspart (Novolog Insulin Pen) NOVOLOG *MILD* ALGORITHM WITH MEALS BEDTIME SC Last administered on 07/25/18 12:30; Admin Dose 3 UNIT; Start 07/07 02/22 at 07:35 Levofloxacin/ Dextrose 100 ml @ 100 mls/hr Q48H IVPB Last administered on 07/25/18 07:09; Admin Dose 100 MLS/HR; Start 07/25/18 at 00:00 Hydralazine HCl (Apresoline) 5 mg Q4H PRN IV ELEVATED SYSTOLIC BP; Start 07/25/18 at 11:30 Amlodipine Besylate (Norvasc) 5 mg BID PO Last administered on 07/25/18at 11:15; Admin Dose 5 MG; Start 07/25/18 at 11:30 THI CARO MD Jul 25, 2018 13:44
[2018-07-25] MEDS: LABETALOL HCL 20MG INJ IV PRN ×2 (18:38→22:33)
[2018-07-25] MEDS: hydrALAzine 20 MG INJ IV PRN (21:11)
[2018-07-25] MEDS ORDERED: HYDROCODONE/APAP (5/325) TAB PO ONE (23:30)
[2018-07-25] MEDS ORDERED: GLUCOSE GEL 15 GRAM TUBE PO PRN ×2 (23:45)
[2018-07-25] MEDS ORDERED: DEXTROSE 50% 50 ML SYRINGE IV PRN ×2 (23:45)
[2018-07-25] MEDS ORDERED: GLUCOSE GEL 15 GRAM TUBE BUCCAL PRN (23:45)
[2018-07-25] MEDS ORDERED: GLUCAGON 1 MG INJ IM PRN (23:45)
[2018-07-26] VITALS (43 sets, daily range): BP systolic 119–209; BP diastolic 66–119; PULSE 69–104; RESP 9–34
[2018-07-26] MEDS: hydrALAzine 20 MG INJ IV PRN ×2 (01:36→15:48)
[2018-07-26] MEDS: INSULIN ASPART [NOVOLOG] 3 ML PEN SC SCH ×4 (07:35→20:57)
[2018-07-26] MEDS: CALCIUM ACETATE 667 MG CAP PO SCH ×3 (08:25→17:26)
[2018-07-26] MEDS: LORAZEPAM 1 MG TAB PO PRN ×2 (08:33→15:48)
[2018-07-26] MEDS: ONDANSETRON 4 MG INJ IV PRN ×2 (08:33→15:26)
[2018-07-26] MEDS ORDERED: LABETALOL 100 MG TAB PO SCH (09:00)
[2018-07-26] MEDS: PANTOPRAZOLE (EC) 40 MG TAB PO SCH (09:55)
[2018-07-26] MEDS: AMLODIPINE 5 MG TAB PO SCH ×2 (09:56→20:54)
[2018-07-26] MEDS: LABETALOL 100 MG TAB PO SCH ×2 (09:57→20:54)
[2018-07-26] MEDS: MULTIVIT/CA CARB/B CMPLX/FA TAB PO SCH (11:44)
[2018-07-26] MEDS: FOLIC ACID 1 MG TAB PO SCH (11:45)
[2018-07-26] MEDS: ASPIRIN (EC) 81 MG TAB PO SCH (11:45)
[2018-07-26] MEDS: HEPARIN 5,000 UNIT/1 ML VIAL SC SCH ×2 (11:47→20:57)
--- NOTE | 2018-07-26 14:18 | PN ---
Date/Time of Note Date/Time of Note DATE: 07/26/18 TIME: 14:15 Assessment/Plan VTE Prophylaxis Risk score (from Ns)>0 risk: 2 SCD applied (from Ns): No SCD contraindicated: other (no) Pharmacological prophylaxis: heparin Lines/Catheters IV Catheter Type (from Nrs): Saline Lock Urinary Cath still in place: No Assessment/Plan Assessment/Plan 52 yo obese woman with ESRD presents in respiratory failure. # Acute hypoxic respiratory failure - CXR with pulmonary edema, may be from ineffective dialysis. - Admitted on BiPAP, now on room air # HTN emergency - Continue home meds - Titrated off nitro gtt. # ESRD on HD - on TThSa scheduled - Got inpatient HD 07/25 and 07/26 - Patient still produces urine - Dr. Varghese following. # Hyperkalemia - resolved # DM - ISS and accuchecks - Hold home PO medications # Diet - Carb control # DVT ppx - Heparin Result Diagram: 07/25/18 0602 07/26/18 0439 Results 24hrs Laboratory Tests Test 07/25/18 17:24 07/25/18 20:15 07/26/18 04:37 07/26/18 04:39 Bedside Glucose 155 143 Hepatitis B Surface NEGATIVE Antigen Hepatitis B Surface POSITIVE H Antibody Sodium Level 138 Potassium Level 5.8 H Chloride Level 89 L Carbon Dioxide Level 28 Anion Gap 21 #H Blood Urea Nitrogen 39 #H Creatinine 7.39 #H Est Glomerular 6 L Filtrat Rate mL/min Glucose Level 149 Calcium Level 10.3 H Total Bilirubin 0.0 L Direct Bilirubin 0.00 Indirect Bilirubin 0.0 Aspartate Amino 28 Transf (AST/SGOT) Alanine 16 Aminotransferase (AL T/SGPT) Alkaline Phosphatase 104 Total Protein 8.0 Albumin 4.2 Globulin 3.80 H Albumin/Globulin 1.10 Ratio Test 07/26/18 08:24 07/26/18 11:42 Bedside Glucose 133 143 Subjective 24 Hr Interval Summary Free Text/Dictation Patient got dialysis this morning. Weaned off nitro gtt yesterday. Today feeling well, no complaints. Exam/Review of Systems Exam Vitals Vital Signs Date Temp Pulse Resp B/P (MAP) Pulse Ox O2 O2 Flow FiO2 Time Delivery Rate 07/26/18 86 12:00 07/26/18 97.8 21 176/89 93 Nasal 2.0 12:00 (118) Cannula 07/24/18 35 23:11 Intake and Output 07/25/18 07/25/18 07/26/18 1515:00 23:00 07:00 IntakeIntake Total 836 ml 600 ml 0 ml BalanceBalance 836 ml 600 ml 0 ml Exam General: Patient is an obese woman, Currently lying in bed, on nasal cannula HEENT: Atraumatic, normocephalic. The pupils are equal, round and reactive. Extraocular motor are intact Neck: Supple with full range of motion. No rigidity or meningismus Chest: Nontender Lungs: Clear to auscultation, no crackles, No wheezing Heart: Normal S1-S2, Regular rhythm, bradycardia, No murmurs Abdomen: Soft, obese, nontender, nondistended , bowel sounds are present. No guarding no rebound tenderness , No masses or organomegaly. No costovertebral temporal angle mass Extremities: Normal to inspection, no edema no cyanosis Results Results 24hrs Laboratory Tests Test 07/25/18 17:24 07/25/18 20:15 07/26/18 04:37 07/26/18 04:39 Bedside Glucose 155 143 Hepatitis B Surface NEGATIVE Antigen Hepatitis B Surface POSITIVE H Antibody Sodium Level 138 Potassium Level 5.8 H Chloride Level 89 L Carbon Dioxide Level 28 Anion Gap 21 #H Blood Urea Nitrogen 39 #H Creatinine 7.39 #H Est Glomerular 6 L Filtrat Rate mL/min Glucose Level 149 Calcium Level 10.3 H Total Bilirubin 0.0 L Direct Bilirubin 0.00 Indirect Bilirubin 0.0 Aspartate Amino 28 Transf (AST/SGOT) Alanine 16 Aminotransferase (AL T/SGPT) Alkaline Phosphatase 104 Total Protein 8.0 Albumin 4.2 Globulin 3.80 H Albumin/Globulin 1.10 Ratio Test 07/26/18 08:24 07/26/18 11:42 Bedside Glucose 133 143 Medications Medication Current Medications Aspirin (Halfprin) 81 mg DAILY PO Last administered on 07/26/18at 11:45; Admin Dose 81 MG; Start 07/25/18 at 09:00 Calcium Acetate (Phoslo) 667 mg WITH MEALS PO Last administered on 07/26/18at 1 1:44; Admin Dose 667 MG; Start 07/25/18 at 07:35 Clonidine (Catapres) 0.2 mg BID PO Last administered on 07/26/18at 08:16; Admin Dose 0.2 MG; Start 07/25/18 at 09:00 Folic Acid (Folic Acid) 1 mg DAILY PO Last administered on 07/26/18 11:45; Admin Dose 1 MG; Start 07/25/18 at 09:00 Lorazepam (Ativan) 1 mg BID PRN PO ANXIETY Last administered on 07/26/18 08:33; Admin Dose 1 MG; Start 07/24/18 at 22:30 Pantoprazole (Protonix Tab) 40 mg DAILY PO Last administered on 07/26/18 09:55; Admin Dose 40 MG; Start 07/25/18 at 09:00 Multivit/Ca Carb/ B Cmplx/FA/Prenat (Vivi-Marisel) 1 tab DAILY PO Last administered on 07/26/18 11:44; Admin Dose 1 TAB; Start 07/25/18 at 09:00 Albuterol (Proventil 0.083% (Neb)) 2.5 mg Q2H RESP THERAPY PRN HHN SHORTNESS OF BREATH; Start 07/24/18 at 22:30 Ondansetron HCl (Zofran Inj) 4 mg Q6H PRN IV NAUSEA AND/OR VOMITING Last administered on 07/26/18 08:33; Admin Dose 4 MG; Start 07/24/18 at 23:00 Acetaminophen (Tylenol Tab) 650 mg Q6H PRN PO PAIN LEVEL 1-3 OR FEVER Last administered on 07/25/18 21:42; Admin Dose 650 MG; Start 07/24/18 at 23:00 Docusate Sodium (Colace) 100 mg Q12H PRN PO CONSTIPATION; Start 07/24/18 at 23:00 Magnesium Hydroxide (Milk Of Mag) 30 ml DAILY PRN PO CONSTIPATION; Start 07/24/18 at 23:00 Heparin Sodium (Porcine) (Heparin (5000 Units/1ml)) 5,000 unit Q12 SC Last administered on 07/26/18 11:47; Admin Dose 5,000 UNIT; Start 07/25/18 at 09:00 Insulin Aspart (Novolog Insulin Pen) NOVOLOG *MILD* ALGORITHM WITH MEALS BEDTIM E SC Last administered on 07/25/18 20:18; Admin Dose 1 UNIT; Start 07/25/18 at 07:35 Levofloxacin/ Dextrose 100 ml @ 100 mls/hr Q48H IVPB Last administered on 07/25/18 07:09; Admin Dose 100 MLS/HR; Start 07/25/18 at 00:00 Amlodipine Besylate (Norvasc) 5 mg BID PO Last administered on 07/26/18 09:56; Admin Dose 5 MG; Start 07/25/18 at 11:30 Hydralazine HCl (Apresoline) 10 mg Q4H PRN IV ELEVATED SYSTOLIC BP Last administered on 07/26/18 01:36; Admin Dose 10 MG; Start 07/25/18 at 19:30 Labetalol HCl (Labetalol) 10 mg Q4H PRN IV ELEVATED BLOOD PRESSURE Last administered on 07/25/18 22:33; Admin Dose 10 MG; Start 07/25/18 at 19:00 Hydralazine HCl (Apresoline) 50 mg Q8 PO Last administered on 07/26/18 13:45; Admin Dose 50 MG; Start 07/26/18 at 06:00 Miscellaneous Information 1 ea NOTE XX ; Start 07/25/18 at 23:45 Glucose (Glutose) 15 gm Q15M PRN PO DECREASED GLUCOSE; Start 07/25/18 at 23:45 Glucose (Glutose) 22.5 gm Q15M PRN PO DECREASED GLUCOSE; Start 07/25/18 at 23:45 Dextrose (D50w Syringe) 25 ml Q15M PRN IV DECREASED GLUCOSE; Start 07/25/18 at 23:45 Dextrose (D50w Syringe) 50 ml Q15M PRN IV DECREASED GLUCOSE; Start 07/25/18 at 23:45 Glucagon (Glucagen) 1 mg Q15M PRN IM DECREASED GLUCOSE; Start 07/25/18 at 23:45 Glucose (Glutose) 15 gm Q15M PRN BUCCAL DECREASED GLUCOSE; Start 07/25/18 at 23:45 Labetalol HCl (Normodyne) 200 mg BID PO Last administered on 07/26/18 09:57; Admin Dose 200 MG; Start 07/26/18 at 09:00 THI CARO MD Jul 26, 2018 14:18
--- NOTE | 2018-07-26 15:04 | CONS ---
Assessment/Plan Assessment/Plan Assessment/Plan 52 yo Female with 1) Acute Hypoxic Respiratory Failure 2) Volume Overload 3) Uncontrolled HTN 4) Diastolic Heart Failure 5) ESRD on HD TTS 6) Anemia, Chronic Disease 7) MBD of CKD 8) Hyperkalemia S/p HD BP improved Off NTG Drip HD plan again for tomorrow HD TTS Schedule IF BP controlled, ok for DC from renal standpoint and I will follow as outpt. Thank you Dr Alston for the opportunity to participate in the care of Ms Narayanan. Consultation Date/Type/Reason Admit Date/Time 07/24/182199 Type of Consult Nephrology Date/Time of Note DATE: 07/26/18 TIME: 15:03 Hx of Present Illness S/p HD BP improved Nausea improved NO KHALIL Exam/Review of Systems Vital Signs Vitals Vital Signs Date Temp Pulse Resp B/P (MAP) Pulse Ox O2 O2 Flow FiO2 Time Delivery Rate 07/26/18 86 12:00 07/26/18 97.8 21 176/89 93 Nasal 2.0 12:00 (118) Cannula 07/24/18 35 23:11 Intake and Output 07/25/18 07/25/18 07/26/18 1515:00 23:00 07:00 IntakeIntake Total 836 ml 600 ml 0 ml BalanceBalance 836 ml 600 ml 0 ml Exam Constitutional: No distress ENMT: mucosa pink and moist Neck: No jvd Respiratory: No crackles/rales Cardiovascular: regular rate and rhythm; No edema Gastrointestinal: soft Musculoskeletal: nl extremities to inspection Extremities: No edema Neurological: VP BIOLOGY II-XII intact, nl mental status, lethargic; No confused Skin: No diaphoresis Labs Result Diagram: 07/25/18 0602 07/26/18 0439 Results 24hrs Laboratory Tests Test 07/25/18 17:24 07/25/18 20:15 07/26/18 04:37 07/26/18 04:39 Bedside Glucose 155 143 Hepatitis B Surface NEGATIVE Antigen Hepatitis B Surface POSITIVE H Antibody Sodium Level 138 Potassium Level 5.8 H Chloride Level 89 L Carbon Dioxide Level 28 Anion Gap 21 #H Blood Urea Nitrogen 39 #H Creatinine 7.39 #H Est Glomerular 6 L Filtrat Rate mL/min Glucose Level 149 Calcium Level 10.3 H Total Bilirubin 0.0 L Direct Bilirubin 0.00 Indirect Bilirubin 0.0 Aspartate Amino 28 Transf (AST/SGOT) Alanine 16 Aminotransferase (AL T/SGPT) Alkaline Phosphatase 104 Total Protein 8.0 Albumin 4.2 Globulin 3.80 H Albumin/Globulin 1.10 Ratio Test 07/26/18 08:24 07/26/18 11:42 Bedside Glucose 133 143 Medications Medications Current Medications Aspirin (Halfprin) 81 mg DAILY PO Last administered on 07/26/18 11:45; Admin Dose 81 MG; Start 07/25/18 at 09:00 Calcium Acetate (Phoslo) 667 mg WITH MEALS PO Last administered on 07/26/18 11:44; Admin Dose 667 MG; Start 07/25/18 at 07:35 Clonidine (Catapres) 0.2 mg BID PO Last administered on 07/26/18 08:16; Admin Dose 0.2 MG; Start 07/25/18 at 09:00 Folic Acid (Folic Acid) 1 mg DAILY PO Last administered on 07/26/18 11:45; Admin Dose 1 MG; Start 07/25/18 at 09:00 Lorazepam (Ativan) 1 mg BID PRN PO ANXIETY Last administered on 07/26/18 08:33; Admin Dose 1 MG; Start 07/24/18 at 22:30 Pantoprazole (Protonix Tab) 40 mg DAILY PO Last administered on 07/26/18 09:55; Admin Dose 40 MG; Start 07/25/18 at 09:00 Multivit/Ca Carb/ B Cmplx/FA/Prenat (Vivi-Marisel) 1 tab DAILY PO Last administered on 07/26/18 11:44; Admin Dose 1 TAB; Start 07/25/18 at 09:00 Albuterol (Proventil 0.083% (Neb)) 2.5 mg Q2H RESP THERAPY PRN HHN SHORTNESS OF BREATH; Start 07/24/18 at 22:30 Ondansetron HCl (Zofran Inj) 4 mg Q6H PRN IV NAUSEA AND/OR VOMITING Last administered on 07/26/18 08:33; Admin Dose 4 MG; Start 07/24/18 at 23:00 Acetaminophen (Tylenol Tab) 650 mg Q6H PRN PO PAIN LEVEL 1-3 OR FEVER Last administered on 07/25/18 21:42; Admin Dose 650 MG; Start 07/24/18 at 23:00 Docusate Sodium (Colace) 100 mg Q12H PRN PO CONSTIPATION; Start 07/24/18 at 23:00 Magnesium Hydroxide (Milk Of Mag) 30 ml DAILY PRN PO CONSTIPATION; Start 07/24/18 at 23:00 Heparin Sodium (Porcine) (Heparin (5000 Units/1ml)) 5,000 unit Q12 SC Last administered on 07/26/18at 11:47; Admin Dose 5,000 UNIT; Start 07/25/18 at 09:00 Insulin Aspart (Novolog Insulin Pen) NOVOLOG *MILD* ALGORITHM WITH MEALS BEDTIME SC Last administered on 07/25/18 20:18; Admin Dose 1 UNIT; Start 07/25/18 at 07:35 Levofloxacin/ Dextrose 100 ml @ 100 mls/hr Q48H IVPB Last administered on 07/25/18at 07:09; Admin Dose 100 MLS/HR; Start 07/25/18 at 00:00 Amlodipine Besylate (Norvasc) 5 mg BID PO Last administered on 07/26/18at 09:56; Admin Dose 5 MG; Start 07/25/18 at 11:30 Hydralazine HCl (Apresoline) 10 mg Q4H PRN IV ELEVATED SYSTOLIC BP Last admin istered on 07/26/18at 01:36; Admin Dose 10 MG; Start 07/25/18 at 19:30 Labetalol HCl (Labetalol) 10 mg Q4H PRN IV ELEVATED BLOOD PRESSURE Last administered on 07/25/18at 22:33; Admin Dose 10 MG; Start 07/25/18 at 19:00 Hydralazine HCl (Apresoline) 50 mg Q8 PO Last administered on 07/26/18at 13:45; Admin Dose 50 MG; Start 07/26/18 at 06:00 Miscellaneous Information 1 ea NOTE XX ; Start 07/25/18 at 23:45 Glucose (Glutose) 15 gm Q15M PRN PO DECREASED GLUCOSE; Start 07/25/18 at 23:45 Glucose (Glutose) 22.5 gm Q15M PRN PO DECREASED GLUCOSE; Start 07/25/18 at 23:45 Dextrose (D50w Syringe) 25 ml Q15M PRN IV DECREASED GLUCOSE; Start 07/25/18 at 23:45 Dextrose (D50w Syringe) 50 ml Q15M PRN IV DECREASED GLUCOSE; Start 07/25/18 at 23:45 Glucagon (Glucagen) 1 mg Q15M PRN IM DECREASED GLUCOSE; Start 07/25/18 at 23:45 Glucose (Glutose) 15 gm Q15M PRN BUCCAL DECREASED GLUCOSE; Start 07/25/18 at 23 :45 Labetalol HCl (Normodyne) 200 mg BID PO Last administered on 07/26/18at 09:57; Admin Dose 200 MG; Start 07/26/18 at 09:00 MAINOR GERARDO MD Jul 26, 2018 15:04
[2018-07-27] VITALS (16 sets, daily range): BP systolic 134–171; BP diastolic 65–84; PULSE 70–84; RESP 16–20
[2018-07-27] MEDS: LEVOFLOXACIN 500MG/D5W (PMX) 100 ML IVPB SCH
[2018-07-27] MEDS: CALCIUM ACETATE 667 MG CAP PO SCH ×3 (07:48→17:25)
[2018-07-27] MEDS: INSULIN ASPART [NOVOLOG] 3 ML PEN SC SCH ×4 (07:52→21:00)
[2018-07-27] MEDS: MULTIVIT/CA CARB/B CMPLX/FA TAB PO SCH (08:22)
[2018-07-27] MEDS: ASPIRIN (EC) 81 MG TAB PO SCH (08:22)
[2018-07-27] MEDS: FOLIC ACID 1 MG TAB PO SCH (08:22)
[2018-07-27] MEDS: PANTOPRAZOLE (EC) 40 MG TAB PO SCH (08:22)
[2018-07-27] MEDS: AMLODIPINE 5 MG TAB PO SCH ×2 (08:24→21:00)
[2018-07-27] MEDS: HEPARIN 5,000 UNIT/1 ML VIAL SC SCH ×2 (08:29→21:03)
[2018-07-27] MEDS: LABETALOL 100 MG TAB PO SCH ×2 (08:32→21:00)
--- NOTE | 2018-07-27 11:18 | PDOCDIS ---
Discharge Instructions DIAGNOSIS Discharge Diagnosis Pulmonary edema Acute respiratory failure Hypertension CONDITION [id number] Patient Condition: [id number] Good HOME CARE INSTRUCTIONS: [id number] Diet Instructions: [id number] FOLLOW UP/APPOINTMENTS Follow-up Plan 1. Continue dialysis as scheduled 2. See your primary care doctor in 1-2 weeks. 3. Take all medications as prescribed. THI CARO MD Jul 27, 2018 11:18
--- NOTE | 2018-07-27 19:20 | PN ---
Date/Time of Note Date/Time of Note DATE: 07/27/18 TIME: 19:19 Assessment/Plan VTE Prophylaxis Risk score (from Nsg)>0 risk: 2 SCD applied (from Nsg): No SCD contraindicated: low risk/ambulating Pharmacological prophylaxis: heparin Lines/Catheters IV Catheter Type (from Nrsg): Saline Lock Urinary Cath still in place: No Assessment/Plan Assessment/Plan 52 yo obese woman with ESRD presents in respiratory failure. # Acute hypoxic respiratory failure - CXR with pulmonary edema, may be from ineffective dialysis. - Admitted on BiPAP, now on room air # HTN emergency - Continue home meds - Titrated off nitro gtt. # ESRD on HD - on TThSa scheduled - Got inpatient HD 07/25 and 07/26 - Patient still produces urine - Dr. Varghese following. # Hyperkalemia - resolved # DM - ISS and accuchecks - Hold home PO medications # Diet - Carb control # DVT ppx - Heparin Dispo: Discharge after dialysis today. Result Diagram: 07/25/18 0602 07/27/18 0627 Results 24hrs Laboratory Tests Test 07/26/18 20:56 07/27/18 06:27 07/27/18 07:43 07/27/18 11:33 Bedside Glucose 181 164 243 H Sodium Level 138 Potassium Level 4.9 Chloride Level 95 L Carbon Dioxide Level 28 Anion Gap 15 H Blood Urea Nitrogen 27 #H Creatinine 6.10 H Est Glomerular 7 L Filtrat Rate mL/min Glucose Level 173 Calcium Level 9.7 Total Bilirubin 0.0 L Direct Bilirubin 0.00 Indirect Bilirubin 0.0 Aspartate Amino 23 Transf (AST/SGOT) Alanine 19 Aminotransferase (AL T/SGPT) Alkaline Phosphatase 94 Total Protein 7.6 Albumin 4.1 Globulin 3.50 H Albumin/Globulin 1.17 Ratio Test 07/27/18 17:14 Bedside Glucose 226 H Subjective 24 Hr Interval Summary Free Text/Dictation No acute overnight events. Patient feeling well. Exam/Review of Systems Exam Vitals Vital Signs Date Temp Pulse Resp B/P (MAP) Pulse Ox O2 O2 Flow FiO2 Time Delivery Rate 07/27/18 75 16:10 07/27/18 98.2 20 145/69 96 Room Air 15:02 (94) 07/27/18 21 03:55 07/26/18 3.0 22:00 Intake and Output 07/26/18 07/26/18 07/27/18 1515:00 23:00 07:00 IntakeIntake Total 540 ml 220 ml 700 ml OutputOutput Total 2200 ml BalanceBalance -1660 ml 220 ml 700 ml Exam General: Patient is an obese woman, Currently sitting up in bed. HEENT: Atraumatic, normocephalic. The pupils are equal, round and reactive. Extraocular motor are intact Neck: Supple with full range of motion. No rigidity or meningismus Chest: Nontender Lungs: Clear to auscultation, no crackles, No wheezing Heart: Normal S1-S2, Regular rhythm, bradycardia, No murmurs Abdomen: Soft, obese, nontender, nondistended , bowel sounds are present. No guarding no rebound tenderness , No masses or organomegaly. No costovertebral temporal angle mass Extremities: Normal to inspection, no edema no cyanosis Results Results 24hrs Laboratory Tests Test 07/26/18 20:56 07/27/18 06:27 07/27/18 07:43 07/27/18 11:33 Bedside Glucose 181 164 243 H Sodium Level 138 Potassium Level 4.9 Chloride Level 95 L Carbon Dioxide Level 28 Anion Gap 15 H Blood Urea Nitrogen 27 #H Creatinine 6.10 H Est Glomerular 7 L Filtrat Rate mL/min Glucose Level 173 Calcium Level 9.7 Total Bilirubin 0.0 L Direct Bilirubin 0.00 Indirect Bilirubin 0.0 Aspartate Amino 23 Transf (AST/SGOT) Alanine 19 Aminotransferase (AL T/SGPT) Alkaline Phosphatase 94 Total Protein 7.6 Albumin 4.1 Globulin 3.50 H Albumin/Globulin 1.17 Ratio Test 07/27/18 17:14 Bedside Glucose 226 H Medications Medication Current Medications Aspirin (Halfprin) 81 mg DAILY PO Last administered on 07/27/18at 08:22; Admin Dose 81 MG; Start 07/25/18 at 09:00 Calcium Acetate (Phoslo) 667 mg WITH MEALS PO Last administered on 07/27/18at 17:25; Admin Dose 667 MG; Start 07/25/18 at 07:35 Clonidine (Catapres) 0.2 mg BID PO Last administered on 07/27/18at 08:23; Admin Dose 0.2 MG; Start 07/25/18 at 09:00 Folic Acid (Folic Acid) 1 mg DAILY PO Last administered on 2/21/19at 08:22; Admin Dose 1 MG; Start 07/25/18 at 09:00 Lorazepam (Ativan) 1 mg BID PRN PO ANXIETY Last administered on 07/26/18 15:48; Admin Dose 1 MG; Start 07/24/18 at 22:30 Pantoprazole (Protonix Tab) 40 mg DAILY PO Last administered on 07/27/18 08:22; Admin Dose 40 MG; Start 07/25/18 at 09:00 Multivit/Ca Carb/ B Cmplx/FA/Prenat (Vivi-Marisel) 1 tab DAILY PO Last administered on 07/27/18 08:22; Admin Dose 1 TAB; Start 07/25/18 at 09:00 Albuterol (Proventil 0.083% (Neb)) 2.5 mg Q2H RESP THERAPY PRN HHN SHORTNESS OF BREATH; Start 07/24/18 at 22:30 Ondansetron HCl (Zofran Inj) 4 mg Q6H PRN IV NAUSEA AND/OR VOMITING Last administered on 07/26/18 15:26; Admin Dose 4 MG; Start 07/24/18 at 23:00 Acetaminophen (Tylenol Tab) 650 mg Q6H PRN PO PAIN LEVEL 1-3 OR FEVER Last administered on 07/25/18 21:42; Admin Dose 650 MG; Start 07/24/18 at 23:00 Docusate Sodium (Colace) 100 mg Q12H PRN PO CONSTIPATION; Start 07/24/18 at 23:00 Magnesium Hydroxide (Milk Of Mag) 30 ml DAILY PRN PO CONSTIPATION; Start 07/24/18 at 23:00 Heparin Sodium (Porcine) (Heparin (5000 Units/1ml)) 5,000 unit Q12 SC Last administered on 07/27/18 08:29; Admin Dose 5,000 UNIT; Start 07/25/18 at 09:00 Insulin Aspart (Novolog Insulin Pen) NOVOLOG *MILD* ALGORITHM WITH MEALS BEDTIME SC Last administered on 07/27/18 17:24; Admin Dose 3 UNIT; Start 07/25/18 at 07:35 Amlodipine Besylate (Norvasc) 5 mg BID PO Last administered on 07/27/18 08:24; Admin Dose 5 MG; Start 07/25/18 at 11:30 Hydralazine HCl (Apresoline) 10 mg Q4H PRN IV ELEVATED SYSTOLIC BP Last administered on 07/26/18at 15:48; Admin Dose 10 MG; Start 07/25/18 at 19:30 Labetalol HCl (Labetalol) 10 mg Q4H PRN IV ELEVATED BLOOD PRESSURE Last administered on 07/25/18at 22:33; Admin Dose 10 MG; Start 07/25/18 at 19:00 Hydralazine HCl (Apresoline) 50 mg Q8 PO Last administered on 07/27/18at 06:04; Admin Dose 50 MG; Start 07/26/18 at 06:00 Miscellaneous Information 1 ea NOTE XX ; Start 07/25/18 at 23:45 Glucose (Glutose) 15 gm Q15M PRN PO DECREASED GLUCOSE; Start 07/25/18 at 23:45 Glucose (Glutose) 22.5 gm Q15M PRN PO DECREASED GLUCOSE; Start 07/25/18 at 23:45 Dextrose (D50w Syringe) 25 ml Q15M PRN IV DECREASED GLUCOSE; Start 07/25/18 at 23:45 Dextrose (D50w Syringe) 50 ml Q15M PRN IV DECREASED GLUCOSE; Start 07/25/18 at 23:45 Glucagon (Glucagen) 1 mg Q15M PRN IM DECREASED GLUCOSE; Start 07/25/18 at 23:45 Glucose (Glutose) 15 gm Q15M PRN BUCCAL DECREASED GLUCOSE; Start 07/25/18 at 23:45 Labetalol HCl (Normodyne) 200 mg BID PO Last administered on 07/26/18at 20:54; Admin Dose 200 MG; Start 07/26/18 at 09:00 THI CARO MD Jul 27, 2018 19:20
--- NOTE | 2018-07-27 21:16 | CONS ---
Assessment/Plan Assessment/Plan Assessment/Plan Assessment/Plan 52 yo Female with 1) Acute Hypoxic Respiratory Failure 2) Volume Overload 3) Uncontrolled HTN 4) Diastolic Heart Failure 5) ESRD on HD TTS 6) Anemia, Chronic Disease 7) MBD of CKD 8) Hyperkalemia BP better controlled Cont current Rx and plan HD tonight, UF 1L DC planning tomorrow Will f/u with patient in HD unit. Consultation Date/Type/Reason Admit Date/Time 07/24/182199 Type of Consult Nephrology Date/Time of Note DATE: 07/27/18 TIME: 21:15 Hx of Present Illness Pending HD No new complaints Constitutional: No requiring O2 Exam/Review of Systems Vital Signs Vitals Vital Signs Date Temp Pulse Resp B/P (MAP) Pulse Ox O2 O2 Flow FiO2 Time Delivery Rate 07/27/18 98.2 78 20 169/76 92 20:00 (107) 07/27/18 Room Air 15:02 07/27/18 03:55 07/26/18 3.0 22:00 Intake and Output 07/26/18 07/26/18 07/27/18 1515:00 23:00 07:00 IntakeIntake Total 540 ml 220 ml 700 ml OutputOutput Total 2200 ml BalanceBalance -1660 ml 220 ml 700 ml Exam Constitutional: No distress Respiratory: clear to auscultation; No wheezing Cardiovascular: regular rate and rhythm; No edema Gastrointestinal: soft Extremities: No pitting pedal edema Neurological: [employer] II-XII intact, nl mental status, nl speech Labs Result Diagram: 07/25/18 0602 07/27/18 0627 Results 24hrs Laboratory Tests Test 07/27/18 06:27 07/27/18 07:43 07/27/18 11:33 07/27/18 17:14 Sodium Level 138 Potassium Level 4.9 Chloride Level 95 L Carbon Dioxide Level 28 Anion Gap 15 H Blood Urea Nitrogen 27 #H Creatinine 6.10 H Est Glomerular 7 L Filtrat Rate mL/min Glucose Level 173 Calcium Level 9.7 Total Bilirubin 0.0 L Direct Bilirubin 0.00 Indirect Bilirubin 0.0 Aspartate Amino 23 Transf (AST/SGOT) Alanine 19 Aminotransferase (AL T/SGPT) Alkaline Phosphatase 94 Total Protein 7.6 Albumin 4.1 Globulin 3.50 H Albumin/Globulin 1.17 Ratio Bedside Glucose 164 243 H 226 H Test 07/27/18 20:49 Bedside Glucose 163 Medications Medications Current Medications Aspirin (Halfprin) 81 mg DAILY PO Last administered on 07/27/18 08:22; Admin Dose 81 MG; Start 07/25/18 at 09:00 Calcium Acetate (Phoslo) 667 mg WITH MEALS PO Last administered on 07/27/18 17:25; Admin Dose 667 MG; Start 07/25/18 at 07:35 Clonidine (Catapres) 0.2 mg BID PO Last administered on 07/27/18 08:23; Admin Dose 0.2 MG; Start 07/25/18 at 09:00 Folic Acid (Folic Acid) 1 mg DAILY PO Last administered on 07/27/18 08:22; Admin Dose 1 MG; Start 07/25/18 at 09:00 Lorazepam (Ativan) 1 mg BID PRN PO ANXIETY Last administered on 07/26/18 15:48; Admin Dose 1 MG; Start 07/24/18 at 22:30 Pantoprazole (Protonix Tab) 40 mg DAILY PO Last administered on 07/27/18 08:22; Admin Dose 40 MG; Start 07/25/18 at 09:00 Multivit/Ca Carb/ B Cmplx/FA/Prenat (Vivi-Marisel) 1 tab DAILY PO Last administered on 07/27/18 08:22; Admin Dose 1 TAB; Start 07/25/18 at 09:00 Albuterol (Proventil 0.083% (Neb)) 2.5 mg Q2H RESP THERAPY PRN HHN SHORTNESS OF BREATH; Start 07/24/18 at 22:30 Ondansetron HCl (Zofran Inj) 4 mg Q6H PRN IV NAUSEA AND/OR VOMITING Last administered on 07/26/18 15:26; Admin Dose 4 MG; Start 07/24/18 at 23:00 Acetaminophen (Tylenol Tab) 650 mg Q6H PRN PO PAIN LEVEL 1-3 OR FEVER Last administered on 07/25/18 21:42; Admin Dose 650 MG; Start 07/24/18 at 23:00 Docusate Sodium (Colace) 100 mg Q12H PRN PO CONSTIPATION; Start 07/24/18 at 23:00 Magnesium Hydroxide (Milk Of Mag) 30 ml DAILY PRN PO CONSTIPATION; Start 07/24/18 at 23:00 Heparin Sodium (Porcine) (Heparin (5000 Units/1ml)) 5,000 unit Q12 SC Last administered on 07/27/18at 21:03; Admin Dose 5,000 UNIT; Start 07/25/18 at 09:00 Insulin Aspart (Novolog Insulin Pen) NOVOLOG *MILD* ALGORITHM WITH MEALS BEDTIME SC Last administered on 07/27/18at 17:24; Admin Dose 3 UNIT; Start 07/25/18 at 07:35 Amlodipine Besylate (Norvasc) 5 mg BID PO Last administered on 07/27/18at 08:24; Admin Dose 5 MG; Start 07/25/18 at 11:30 Hydralazine HCl (Apresoline) 10 mg Q4H PRN IV ELEVATED SYSTOLIC BP Last administered on 07/26/18at 15:48; Admin Dose 10 MG; Start 07/25/18 at 19:30 Labetalol HCl (Labetalol) 10 mg Q4H PRN IV ELEVATED BLOOD PRESSURE Last administered on 07/25/18at 22:33; Admin Dose 10 MG; Start 07/25/18 at 19:00 Hydralazine HCl (Apresoline) 50 mg Q8 PO Last administered on 07/27/18at 06:04; Admin Dose 50 MG; Start 07/26/18 at 06:00 Miscellaneous Information 1 ea NOTE XX ; Start 07/25/18 at 23:45 Glucose (Glutose) 15 gm Q15M PRN PO DECREASED GLUCOSE; Start 07/25/18 at 23:45 Glucose (Glutose) 22.5 gm Q15M PRN PO DECREASED GLUCOSE; Start 07/25/18 at 23:45 Dextrose (D50w Syringe) 25 ml Q15M PRN IV DECREASED GLUCOSE; Start 07/25/18 at 23:45 Dextrose (D50w Syringe) 50 ml Q15M PRN IV DECREASED GLUCOSE; Start 07/25/18 at 23:45 Glucagon (Glucagen) 1 mg Q15M PRN IM DECREASED GLUCOSE; Start 07/25/18 at 23:45 Glucose (Glutose) 15 gm Q15M PRN BUCCAL DECREASED GLUCOSE; Start 07/25/18 at 23:45 Labetalol HCl (Normodyne) 200 mg BID PO Last administered on 07/26/18at 20:54; Admin Dose 200 MG; Start 07/26/18 at 09:00 MAINOR GERARDO MD Jul 27, 2018 21:16
[2018-07-28] VITALS (14 sets, daily range): BP systolic 148–190; BP diastolic 69–89; PULSE 70–88; RESP 18–20
[2018-07-28] MEDS: hydrALAzine 20 MG INJ IV PRN (02:32)
[2018-07-28] MEDS: ACETAMINOPHEN 325 MG TAB PO PRN (04:04)
[2018-07-28] MEDS: LORAZEPAM 1 MG TAB PO PRN (04:11)
--- NOTE | 2018-07-28 06:41 | CONS ---
Assessment/Plan Assessment/Plan Assessment/Plan 52 yo Female with 1) Acute Hypoxic Respiratory Failure 2) Volume Overload 3) Uncontrolled HTN 4) Diastolic Heart Failure 5) ESRD on HD TTS 6) Anemia, Chronic Disease 7) MBD of CKD 8) Hyperkalemia BP better controlled Cont current Rx and plan S/p HD No complication Will f/u with patient in HD unit. Consultation Date/Type/Reason Admit Date/Time 07/24/18 2200 Type of Consult Nephrology Date/Time of Note DATE: 07/28/18 TIME: 06:40 Hx of Present Illness S/p HD last night, no complication Constitutional: No requiring O2 Exam/Review of Systems Vital Signs Vitals Vital Signs Date Temp Pulse Resp B/P (MAP) Pulse Ox O2 O2 Flow FiO2 Time Delivery Rate 07/28/18 98.4 84 19 148/69 97 04:00 (95) 07/28/18 Room Air 02:23 07/27/18 03:55 07/26/18 3.0 22:00 Intake and Output 07/27/18 07/27/18 07/28/18 1515:00 23:00 07:00 IntakeIntake Total 960 ml OutputOutput Total 1300 ml BalanceBalance 960 ml -1300 ml Exam Constitutional: No distress ENMT: mucosa pink and moist Neck: No jvd Respiratory: clear to auscultation; No crackles/rales Cardiovascular: regular rate and rhythm; No edema Gastrointestinal: soft Labs Result Diagram: 07/25/18 0602 07/27/18 0627 Results 24hrs Laboratory Tests Test 07/27/18 07:43 07/27/18 11:33 07/27/18 17:14 07/27/18 20:49 Bedside Glucose 164 243 H 226 H 163 Medications Medications Current Medications Aspirin (Halfprin) 81 mg DAILY PO Last administered on 07/27/18at 08:22; Admin Dose 81 MG; Start 07/25/18 at 09:00 Calcium Acetate (Phoslo) 667 mg WITH MEALS PO Last administered on 07/27/18at 17:25; Admin Dose 667 MG; Start 07/25/18 at 07:35 Clonidine (Catapres) 0.2 mg BID PO Last administered on 07/27/18at 08:23; Admin Dose 0.2 MG; Start 07/25/18 at 09:00 Folic Acid (Folic Acid) 1 mg DAILY PO Last administered on 07/27/18 08:22; Admin Dose 1 MG; Start 07/25/18 at 09:00 Lorazepam (Ativan) 1 mg BID PRN PO ANXIETY Last administered on 07/28/18 04:11 ; Admin Dose 1 MG; Start 07/24/18 at 22:30 Pantoprazole (Protonix Tab) 40 mg DAILY PO Last administered on 07/27/18 08:22; Admin Dose 40 MG; Start 07/25/18 at 09:00 Multivit/Ca Carb/ B Cmplx/FA/Prenat (Vivi-Marisel) 1 tab DAILY PO Last administered on 07/27/18 08:22; Admin Dose 1 TAB; Start 07/25/18 at 09:00 Albuterol (Proventil 0.083% (Neb)) 2.5 mg Q2H RESP THERAPY PRN HHN SHORTNESS OF BREATH; Start 07/24/18 at 22:30 Ondansetron HCl (Zofran Inj) 4 mg Q6H PRN IV NAUSEA AND/OR VOMITING Last ad ministered on 07/26/18 15:26; Admin Dose 4 MG; Start 07/24/18 at 23:00 Acetaminophen (Tylenol Tab) 650 mg Q6H PRN PO PAIN LEVEL 1-3 OR FEVER Last administered on 07/28/18 04:04; Admin Dose 650 MG; Start 07/24/18 at 23:00 Docusate Sodium (Colace) 100 mg Q12H PRN PO CONSTIPATION; Start 07/24/18 at 23:00 Magnesium Hydroxide (Milk Of Mag) 30 ml DAILY PRN PO CONSTIPATION; Start 07/24/18 at 23:00 Heparin Sodium (Porcine) (Heparin (5000 Units/1ml)) 5,000 unit Q12 SC Last administered on 07/27/18 21:03; Admin Dose 5,000 UNIT; Start 07/25/18 at 09:00 Insulin Aspart (Novolog Insulin Pen) NOVOLOG *MILD* ALGORITHM WITH MEALS BEDTIME SC Last administered on 07/27/18 17:24; Admin Dose 3 UNIT; Start 07/25/18 at 07:35 Amlodipine Besylate (Norvasc) 5 mg BID PO Last administered on 07/27/18 08:24; Admin Dose 5 MG; Start 07/25/18 at 11:30 Hydralazine HCl (Apresoline) 10 mg Q4H PRN IV ELEVATED SYSTOLIC BP Last administered on 07/28/18at 02:32; Admin Dose 10 MG; Start 07/25/18 at 19:30 Labetalol HCl (Labetalol) 10 mg Q4H PRN IV ELEVATED BLOOD PRESSURE Last administered on 07/25/18at 22:33; Admin Dose 10 MG; Start 07/25/18 at 19:00 Hydralazine HCl (Apresoline) 50 mg Q8 PO Last administered on 07/28/18at 06:08; Admin Dose 50 MG; Start 07/26/18 at 06:00 Miscellaneous Information 1 ea NOTE XX ; Start 07/25/18 at 23:45 Glucose (Glutose) 15 gm Q15M PRN PO DECREASED GLUCOSE; Start 07/25/18 at 23:45 Glucose (Glutose) 22.5 gm Q15M PRN PO DECREASED GLUCOSE; Start 07/25/18 at 23:45 Dextrose (D50w Syringe) 25 ml Q15M PRN IV DECREASED GLUCOSE; Start 07/25/18 at 23:45 Dextrose (D50w Syringe) 50 ml Q15M PRN IV DECREASED GLUCOSE; Start 07/25/18 at 23:45 Glucagon (Glucagen) 1 mg Q15M PRN IM DECREASED GLUCOSE; Start 07/25/18 at 23:45 Glucose (Glutose) 15 gm Q15M PRN BUCCAL DECREASED GLUCOSE; Start 07/25/18 at 23:45 Labetalol HCl (Normodyne) 200 mg BID PO Last administered on 07/26/18at 20:54; Admin Dose 200 MG; Start 07/26/18 at 09:00 MAINOR GERARDO MD Jul 28, 2018 06:41
[2018-07-28] MEDS: INSULIN ASPART [NOVOLOG] 3 ML PEN SC SCH ×2 (07:45→11:50)
[2018-07-28] MEDS: MULTIVIT/CA CARB/B CMPLX/FA TAB PO SCH (08:34)
[2018-07-28] MEDS: FOLIC ACID 1 MG TAB PO SCH (08:34)
[2018-07-28] MEDS: ASPIRIN (EC) 81 MG TAB PO SCH (08:34)
[2018-07-28] MEDS: PANTOPRAZOLE (EC) 40 MG TAB PO SCH (08:34)
[2018-07-28] MEDS: CALCIUM ACETATE 667 MG CAP PO SCH ×2 (08:35→11:50)
[2018-07-28] MEDS: AMLODIPINE 5 MG TAB PO SCH (08:36)
[2018-07-28] MEDS: LABETALOL 100 MG TAB PO SCH (08:36)
[2018-07-28] MEDS: HEPARIN 5,000 UNIT/1 ML VIAL SC SCH (08:43)
--- NOTE | 2018-07-28 17:59 | DS ---
Date/Time of Note Date/Time of Note DATE: 07/28/18 TIME: 17:57 Discharge Summary Admission/Discharge Info Admit Date/Time Jul 24, 2018 at 22:04 Discharge Date/Time Jul 28, 2018 at 13:13 Discharge Diagnosis Pulmonary edema Acute respiratory failure Hypertension Patient Condition: Good Consults Dr. Varghese, renal Procedures None Hx of Present Illness 52 yo F with PMH ESRD on HD TTSa, DM, HTN presents to ED with worsening shortness of breath that started at 5pm today. Patient states she was doing well earlier today and laid down to rest around 5pm when she started experiencing worsening shortness of breath. She admits to cough and clear productive sputum. In the EMS, she was found with elevated BP with SBP in the 200s and placed on CPAP given hypoxia. Patient denies any chest pain, palpitation. wheezing, abdominal pain, urinary issues, constipation, or diarrhea. Patient admits last HD session was Tuesday and follows with Dr Martin and Dr. Calvo as outpatient. Patient states shes had this in the past and told she has asthma. Hospital Course She required ICU admission initially on BiPAP. Soon after getting dialysis her respiratory status improved from nasal cannula to room air. She got three HD sessions total over her hospital stay. At time of discharge she was up ambulating, breathing room air comfortably. Home Meds Reported Medications Folic Acid* (Folic Acid*) 1 Mg Tablet, 1 MG PO DAILY, TAB 07/24/18 Docusate Sodium* (Docusate Sodium*) 100 Mg Capsule, 100 MG PO BID PRN for CONSTIPATION, #60 CAP 07/24/18 Aspirin* (Aspirin* EC) 81 Mg Tablet., 81 MG PO DAILY, TAB 07/24/18 Atenolol* (Atenolol*) 50 Mg Tablet, 50 MG PO BID, #60 TAB 07/24/18 Folic Acid/Vitamin B Comp W-C (Nephrocaps Capsule) 1 Mg Capsule, 1 MG PO DAILY, CAP 07/24/18 Lorazepam* (Lorazepam*) 1 Mg Tablet, 1 MG PO BID PRN for ANXIETY, #30 TAB 07/24/18 Glipizide* (Glipizide*) 5 Mg Tablet, 5 MG PO BID, TAB 07/24/18 Clonidine Hcl* (Clonidine Hcl*) 0.2 Mg Tablet, 0.2 MG PO BID, TAB 07/24/18 Albuterol Sulfate* (Proair HFA*) 8.5 Gm Hfa.aer.ad, 2 PUFF INH Q4, #1 INHALER 07/24/18 Pantoprazole* (Pantoprazole*) 40 Mg Tablet.dr, 40 MG PO DAILY, TAB 07/24/18 Calcium Acetate* (Calcium Acetate*) 667 Mg Capsule, 667 MG PO WITH MEALS, #30 CAP 07/24/18 Follow-up Plan 1. Continue dialysis as scheduled 2. See your primary care doctor in 1-2 weeks. 3. Take all medications as prescribed. Primary Care Provider Boby Ivan MD Time spent on discharge: > 30 minutes Pending Labs Laboratory Tests Test 07/27/18 20:49 07/28/18 07:38 Bedside Glucose 163 mg/dL (70-220) 189 mg/dL (70-220) THI CARO MD Jul 28, 2018 17:59
== END 2018-07-28 13:13 | disposition home or self-care (01) | DRG 291 ==
LOC: E/R 19:33 → ICU 22:04 → CANRESERV 07-25 00:05 → TEL 07-26 22:04
PROVIDERS: ADMIT Internal Medicine; ATTEND Internal Medicine
PROC: 5A1D70Z Performance of Urinary Filtration, Intermittent, Less than 6 Hours Per Day (ICD-10-PCS; principal; 2018-07-25)
DX: I13.2 Hypertensive heart and chronic kidney disease with heart failure and with stage 5 chronic kidney disease, or end stage renal disease (principal); J96.01 Acute respiratory failure with hypoxia; N18.6 End stage renal disease; I16.1 Hypertensive emergency; I50.30 Unspecified diastolic (congestive) heart failure; E11.22 Type 2 diabetes mellitus with diabetic chronic kidney disease; E11.65 Type 2 diabetes mellitus with hyperglycemia; Z99.2 Dependence on renal dialysis; E87.5 Hyperkalemia; E66.9 Obesity, unspecified; Z68.34 Body mass index [BMI] 34.0-34.9, adult; D63.8 Anemia in other chronic diseases classified elsewhere; Z87.891 Personal history of nicotine dependence
CPT/HCPCS: 36415; 36600; 70450; 71045; 80053; 82550; 82553; 82803; 82962; 83036; 83735; 83880; 84484; 85025; 85610; 85730; 86706; 87081; 87340; 90935; 93005; 94660; 96365; 96366; 96375; J0360; J1644; J1815; J1940; J1956; J2270; J2405